=== PATIENT | male | born 1960 | race Caucasian/White ===

== ENCOUNTER 2020-04-28 10:50 | Outpatient (CLI) | payer BC ==
--- NOTE | 2020-04-28 16:01 | PET ---
Nuclear medicine PET scan brain: 04/28/2020 HISTORY: 59-year-old male with dementia TECHNIQUE: 7.7 mCi of F-18 FDG injected IV. SPECT and attenuation correction noncontrast CT, performed. SPECT-CT fusion images evaluated. FINDINGS: There is asymmetrically decreased uptake in the left frontal lobe cortex, and left parietal lobe jesse ex. There is symmetrically decreased uptake in the bilateral temporal lobes. There is sparing of the bilateral occipital lobes and posterior cingulate gyrus. The attenuation correction CT demonstrates no obvious large old infarction, mass effect, or obstructi ve hydrocephalus. The pattern of FDG uptake is abnormal, but does not classically fit Alzheimer's disease, frontotempor al dementia, or dementia with Lewy body disease. IMPRESSION: The study is abnormal, but nonspecific. Given the asymmetrical involvement of left frontal lobe and b ilaterally symmetrical involvement of temporal lobes, one possibility is perhaps early frontotemporal dementia (although the asymmetric involvement of left parietal lobe is not typical for this).
== END 2020-04-28 10:51 | disposition home or self-care (01) ==
LOC: PET 10:50
PROVIDERS: ATTEND Psychiatry & Neurology Neurology
DX: G30.0 Alzheimer's disease with early onset (principal); G93.89 Other specified disorders of brain
CPT/HCPCS: 78803; A9552